=== PATIENT | male | born 1945 | race Caucasian/White ===

== ENCOUNTER → 2017-07-20 | Outpatient (CLI) | payer MEDICARE ==
[~2017-07-20] MED LIST: ADVI200T17 PO; ASPI81TA23 PO; CITA10TA4 PO; CLON0.2T PO; EMPA1TAB PO; ESCI10TA PO; INSU1.2I SQ; LEVO.125 PO; METF1000 PO; METR250T23 PO; OMEP40CA2 PO; RAMI10CA PO; RAPA8CAP PO; ROSU10 PO; TAMS0.4C4 PO
--- NOTE | 2017-07-20 12:33 | RADRPT ---
EXAM DATE/TIME: 07/20/2017 12:10 [facility] COMPARISON: No previous studies available for comparison. INDICATIONS : Evaluate for pneumonia, pneumothorax, or communicable disease. Pre op for pulmonary surgery. MEDICAL HISTORY : None. SURGICAL HISTORY : Cardiac cath w/ stent placement. ENCOUNTER: Initial ACUITY: 1 day PAIN SCORE: 0/10 LOCATION: chest FINDINGS: Borderline cardiomegaly is seen. There are atherosclerotic calcifications involving the visualized ao rta chronic in nature. Focal consolidation is not seen. Right-sided old rib fractures are seen. There are degenerative changes in the thoracic spine with hypertrophic changes. CONCLUSION: No acute cardiopulmonary disease. Wale Arce MD on July 20, 2017 at 12:29 Board Certified Radiologist. This report was verified electronically.
[2017-07-20 13:13] LABS: HEMATOCRIT 40.1 % (39.0-51.0); HEMOGLOBIN 13.7 GM/DL (13.0-17.0); MEAN CELL VOLUME 90.9 FL (80.0-100.0); MEAN CORPUSCULAR HGB CONC 34.1 % (32.0-36.0); MEAN PLATELET VOLUME 9.1 FL (7.0-11.0); PLATELET COUNT 291 TH/MM3 (150-450); RED BLOOD COUNT 4.42 MIL/MM3 (4.50-5.90); RED CELL DISTRIBUTION WIDTH 13.7 % (11.6-17.2); WHITE BLOOD COUNT 8.4 TH/MM3 (4.0-11.0)
[2017-07-20 13:23] LABS: BILIRUBIN, URINE NEG (NEG); BLOOD, URINE NEG (NEG); GLUCOSE,URINE 1000 mg/dL (NEG); KETONE, URINE NEG (NEG); MUCUS URINE FEW /lpf (OCC); NITRITE,URINE NEG (NEG); URINE COLOR LIGHT-YELLOW (YELLW/STRAW); URINE LEUKOCYTE ESTERASE NEG (NEG)
[2017-07-20 13:30] LABS: PROTHROMBIN TIME - PATIENT 10.2 SEC (9.8-11.6)
[2017-07-20 13:41] LABS: BICARBONATE 26.4 MEQ/L (21.0-32.0); CALCIUM 9.4 MG/DL (8.5-10.1); CREATININE 1.23 MG/DL (0.60-1.30)
--- NOTE | 2017-07-21 10:30 | EKG ---
Date Performed: 07/20/2017 Time Performed: 11:24:38 PTAGE: 72 years EKG: Sinus bradycardia with PAC(s) Lateral T wave changes are nonspecific Borderline ECG PREVIOUS TRACING : 08/16/2005 16.28 No change from previous tracing noted. DOCTOR: Rubens Schneider Interpretating Date/Time 07/21/2017 10:28:27
== END ==
LOC: CPRE 11:01
PROVIDERS: ATTEND Thoracic Surgery (Cardiothoracic Vascular Surgery)
DX: Z01.812 Encounter for preprocedural laboratory examination (principal); Z01.811 Encounter for preprocedural respiratory examination; Z01.810 Encounter for preprocedural cardiovascular examination; C34.32 Malignant neoplasm of lower lobe, left bronchus or lung; R94.31 Abnormal electrocardiogram [ECG] [EKG]
CPT/HCPCS: 36415; 71046; 80048; 81001; 85027; 85610; 85730; 93005

== ENCOUNTER 2017-07-24 05:43 | Inpatient (IN) | payer MEDICARE ==
[~2017-07-24] VITALS: Ht 172.7 cm; Wt 99.5 kg
[2017-07-24] VITALS (8 sets, daily range): BP systolic 158–201; BP diastolic 57–76; PULSE 51–84; RESP 14–20; TEMP 97.8–98.1; O2SAT 91–96
[~2017-07-24 05:43] MED LIST changes: -ADVI200T17 PO; -CITA10TA4 PO; -METR250T23 PO
[2017-07-24] MEDS ORDERED: METOPROLOL TARTRATE 25 MG TAB PO PRN (06:30)
[2017-07-24] MEDS ORDERED: SODIUM CHLORID 0.9% 500 ML IV PRN (06:30)
[2017-07-24] MEDS ORDERED: CHLORHEXIDINE GLUCONATE 2 % 1 PACK (2 CLOTHS) TOPICAL PRN (06:30)
[2017-07-24] MEDS ORDERED: POVIDONE IODINE 5% (ANTISEPSIS KIT) 4 APPLICATIONS EACH NARE PRN (06:30)
[2017-07-24] MEDS ORDERED: LACTATED RINGER'S 1000 ML IV PRN (06:30)
[2017-07-24] MEDS ORDERED: ceFAZolin 2 GM PREMIX 50 ML ONE (06:33)
[2017-07-24] MEDS ORDERED: ADVI200T17 PO (06:38)
--- NOTE | 2017-07-24 08:46 | PD.CAR.PN ---
CVT Progress Note Subjective/Hospital Course: 72/ male recent incidental finding of left lover lung mass on CT scan , work up revealed new adenocarcinoma T1 NX MO , recent fatigue and cough PMH: tobacco abuse, subclavian artery occlusion, HTN, HLP, anxiety , hypothyroidism , BPH , DM for thoracotomy today Objective: Vital Signs Date Time Temp Pulse Resp B/P (MAP) Pulse Ox O2 Delivery O2 Flow Rate FiO2 07/24/17 06:45 98.4 42 16 152/68 (96) 98 (1) Hyperlipemia (2) Hypertension (3) Hypothyroidism (4) Diabetes mellitus (5) left thoracotomy (6) Lung cancer Luz Mcqueen Jul 24, 2017 08:46
--- NOTE | 2017-07-24 08:48 | HHI.FF ---
Face to Face Verification Diagnosis: (1) Diabetes mellitus (2) Hyperlipemia (3) Hypothyroidism (4) Lung cancer (5) Hypertension (6) left thoracotomy Home Health Nursing Order: Medication education-adverse effect Wound care and dressing changes Nursing assessment with vital signs Instructions: Thoracic Surgery patients Mandatory frequency Assess and evaluation, 2-3 x a week for one week Initial visit 1. Review post chest surgery instructions chest precautions, Activity, Elastic hose, Incision care, Driving, Incentive spirometry, Smoking, [place] , Work and other) 2. Need Betadine to paint incision 3. Medication reconciliation 4. Importance of follow up care/ check on appointments 5. Make calendar record temperature daily 6. When to call Home nurse, review instructions, phone list 7. Incentive Spirometry, demonstration Visit 1- Begin discharge instruction for patient family and/ or caregiver using teach back method- 1. Signs and symptoms of infection 2. Disease characteristics 3. Medicines and side effects 4. Foods and nutrition/ appetite 5. Infection control/ hand washing/ hygiene Visit 2- Continue teaching 1. Discharge instructions- include additional information on smoking cessation , Visit 3- Continue teaching- 1. Cough and deep breathing, incision monitoring. Incentive spirometry Q1 hr x 10, while awake, also use acapella device hourly whole awake chest wall Precautions: NO pushing or pulling, ( pt must use chest pillow to support chest with all activities and with coughing Daily incision care: ok to shower daily ( 48 hrs after chest tube removed ) , no tub bath. Wash all incisions with liquid dial soap, clean wash cloth to each site, rinse and pat dry. Observe for any signs of infection, such as drainage which is dark yellow, limon, green or foul smelling. Immediately report to the surgeon any drainage from the chest incision, or legs, and for any abnormal drainage from the chest tube sites. Notify surgeon if any temp > 101.5 degrees F. When specialty dressing removed/ or if you do not have one, continue to shower daily as above, then rinse and pat incision dry and paint with betadine daily x 5 days. Allow steri strips to fall off if you have any. Avoid lotions, creams, salves, oils, etc. for the first month For Dr. Brooks patients , please obtain PA & Lat CXR in 2 weeks, results to Dr. Brooks ( prescription will be given) ( ) (Tele: [phone]) , F/U appointment: as per DC instructions: PCP in 2 weeks, CV surgeon 2 weeks, For any questions regarding incisions/ dressing / meds / post op care or above Symptoms, Monday 8am-5pm Heart & Vascular Surgery Office ( Dr. Elmore & Dr. Brooks), After Hours / Nights (5pm -8am) Weekends and Holidays Please call [facility] Card[facility] ([facility]) Charge Nurse I have seen patient Giuliano Pereira on 07/24/17. My clinical findings support the need for the requested home health care services because: Deconditioned w/ increased weakness I certify that my clinical findings support that this patient is homebound because: Post-op weakness Luz Mcqueen Jul 24, 2017 08:48
[2017-07-24] MEDS ORDERED: BUPIVACAINE LIPOSO PF 1.3% INJ 20 ML, DEXAMETHASONE INJ 4 MG, MORPHINE INJ 8 MG in SODI... IRRIGATION SCH (09:00)
[2017-07-24] MEDS ORDERED: SUGAMMADEX SODIUM 200 MG/2 ML VIAL IV PUSH ONE (10:41)
[2017-07-24] MEDS ORDERED: NALOXONE HCL 0.4 MG/ML AMP IV PUSH PRN (11:00)
[2017-07-24] MEDS ORDERED: Post-op Orders (for Pharmacy) OTHER ONE (11:00)
[2017-07-24] MEDS ORDERED: POTASSIUM CHLOR 20 MEQ PREMIX 100 ML IV PRN (11:00)
[2017-07-24] MEDS ORDERED: RESP: ALBUTEROL 2.5 MG/3 ML NEB (PRN) NEB (11:00)
[2017-07-24] MEDS ORDERED: SODIUM CHLORIDE 0.9% FLUSH 10 ML FLUSH IV FLUSH PRN (11:00)
[2017-07-24] MEDS ORDERED: MAGNESIUM HYDROXIDE SUSP 30 ML CUP PO PRN (11:00)
[2017-07-24] MEDS ORDERED: ACETAMINOPHEN 325 MG TAB PO PRN (11:00)
[2017-07-24] MEDS ORDERED: [UNRECOGNIZED DRUG - OTHER] PO PRN (11:00)
--- NOTE | 2017-07-24 11:07 | PD.OP ---
cc: Thompson Tee MD; Mihaela Brooks MD; Masood Sheriff MD Operative Report Date of Surgery: Jul 24, 2017 Preoperative Diagnosis: (1) Lung cancer Postoperative Diagnosis: same Procedure: Left thoracoscopic assisted left lower lobectomy Intercostal rib block - T4-T7 Anesthesia: Dr. Lomas Surgeon: Mihaela Brooks Etiquette Coach(s): GOLDY Tellez Operation and Findings: After adequate general anesthesia the patient was placed in the right lateral decubitus position and the left chest was prepped and draped in usual manner. A 10cm posterolateral incision was performed and electrocautery was used to obtain hemostasis and carry the dissection down through the latissimus dorsi. The serratus anterior was retracted anteriorly and the 5th intercostal space was entered under direct vision and selective single lung ventilation. A retractor was placed after shingling the 5th rib posteriorly. Exploration of the left hemithorax was significant for a mass in the superior segment of the left lower lobe. An anterior port was placed at ~T6 and the thoracoscope was introduced to aid in exposure. The superior segment was resected using a stapler and the specimen was submitted for frozen section. The diagnosis was confirmed as adenocarcinoma and there were atypical cells at the margin. The major fissure was developed using electrocautery and sharp dissection. The pleural reflection was divided posteriorly from the major fissure down and the inferior pulmonary ligament was divided up to the left inferior pulmonary vein. The fissure was completed and the segmental lower lobe branches were ligated and divided using a vascular stapler. The left inferior pulmonary vein was isolated and divided using a endo-LAURENT vascular stapler. The left lower lobe bronchus was isolated and divided using an endo LAURENT stapler. The specimen was submitted to pathology for permanent section. Additionally, a level 9 and a level 6 lymph node were resected and submitted for permanent section. A 32 Chinese chest tube was then placed through the anterior port incision anteriorly and each secured with 0 silk suture. Intercostal rib blocks were then placed from T4-T7 posteriorly. The lung was ventilated and no significant air leaks were found. The wound was closed in layers approximately in the ribs initially with a 2. Vicryl [id number] suture. The latissimus dorsi was reapproximated using a running 0 Vicryl suture. The subcutaneous tissues approximated running 2-0 Vicryl suture and the skin was approximated using running 4-0 Monocryl subcuticular stitch. All sponges history counts were correct at the close the procedure and the patient was transferred to the PACU for recovery purposes. Findings: Left lower lobe tumor Specimen: left lower lobe, level 9 and 6 lymph nodes Drain: 32F chest tube Complications: none Mihaela Brooks MD Jul 24, 2017 11:07
[2017-07-24] MEDS ORDERED: DO NOT ADM ANY ANTICOAGULANT DRUGS PRN (11:31)
[2017-07-24] MEDS ORDERED: *morphine SULFATE 4 MG/ML PERIprocedure ONLY ONE (11:55)
[2017-07-24] MEDS ORDERED: INSULIN HUMAN REGULAR 1,000 UNITS/10 ML VIAL ONE (12:11)
--- NOTE | 2017-07-24 12:12 | RADRPT ---
EXAM DATE/TIME: 07/24/2017 11:44 [facility] COMPARISON: CHEST PA & LAT, July 20, 2017, 12:10. INDICATIONS : Post-op Thoracotomy. MEDICAL HISTORY : None. SURGICAL HISTORY : Cardiac cath w/ stent placement ENCOUNTER: Initial ACUITY: 1 day PAIN SCORE: Non-responsive. LOCATION: Bilateral chest FINDINGS: There is a left-sided chest tube in place. There is a minimal left pneumothorax in the left apex. Lef t subcutaneous emphysema is seen. There is fracturing of the posterior left fifth and sixth ribs. Thi s could be postoperative. The cardiac silhouette is enlarged. The lungs demonstrate diffuse prominenc e of the interstitium. A focal alveolar consolidation is not seen. The costophrenic angles are clear. CONCLUSION: 1. Minimal left pneumothorax with a left chest tube in place. 2. Diffuse prominence of the interstitium which may represent mild pulmonary edema. Paulie Freitas MD on July 24, 2017 at 12:07 Board Certified Radiologist. This report was verified electronically.
[2017-07-24] MEDS: MORPHINE SULFATE 30 MG/30 ML PCA IV SCH (12:15)
[2017-07-24] MEDS ORDERED: hydrALAZINE HCL 20 MG/ML VIAL ONE (12:29)
[2017-07-24] MEDS ORDERED: INSULIN HUMAN REGULAR 1,000 UNITS/10 ML VIAL IV PUSH ONE (13:00)
[2017-07-24] MEDS: hydrALAZINE HCL 20 MG/ML VIAL IV PUSH PRN ×6 (13:33→20:10)
[2017-07-24] MEDS: TAMSULOSIN HCL 0.4 MG CAP PO SCH ×2 (13:57→20:11)
[2017-07-24] MEDS: PCA - TOTAL MG MORPHINE DELIVERED PER SHIFT SCH ×2 (14:00→22:00)
[2017-07-24] MEDS ORDERED: METOPROLOL TARTRATE 5 MG/5 ML VIAL IV PUSH ONE ×2 (15:00→15:45)
[2017-07-24] MEDS ORDERED: METOPROLOL TARTRATE 5 MG/5 ML VIAL ONE (15:21)
[2017-07-24] MEDS ORDERED: ONDANSETRON HCL 4 MG/2 ML VIAL IV PUSH ONE (16:45)
[2017-07-24] MEDS: ACETAMINOPHEN 1000 MG/100 ML 100 ML IV SCH ×2 (16:58→23:13)
[2017-07-24] MEDS: INSULIN ASPART SUPPLEMENTAL SCALE SQ SCH ×2 (19:19→23:37)
[2017-07-24] MEDS ORDERED: DEXTROSE 50% IN WATER 50 ML VIAL(D50) IV PUSH PRN (19:30)
[2017-07-24] MEDS ORDERED: GLUCAGON 1 MG/ML VIAL OTHER PRN (19:30)
[2017-07-24] MEDS: metFORMIN HCL 500 MG TAB PO SCH (20:10)
[2017-07-24] MEDS: ATORVASTATIN 20 MG TAB PO SCH (20:10)
[2017-07-24] MEDS: PANTOPRAZOLE SOD 40 MG DELAYED RELEASE TAB PO SCH (20:11)
[2017-07-24] MEDS: cloNIDine HCL 0.2 MG TAB PO SCH (20:11)
[2017-07-24] MEDS: ONDANSETRON HCL 4 MG/2 ML VIAL IV PUSH PRN (20:30)
[2017-07-24] MEDS: EMPAGLIFLOZIN 10 MG PO SCH (21:00)
[2017-07-24] MEDS ORDERED: DOCUSATE CALCIUM 240 MG CAP PO SCH (21:00)
[2017-07-24] MEDS: RAMIPRIL 5 MG CAP PO SCH (21:15)
[2017-07-24] MEDS: LEVOTHYROXINE SODIUM 125 MCG TAB PO SCH (21:15)
[2017-07-24] MEDS: SODIUM CHLORIDE 0.9% FLUSH 10 ML FLUSH IV FLUSH SCH (21:15)
[2017-07-24] MEDS ORDERED: CLEVIDIPINE INJ 50 ML ONE (23:18)
[2017-07-25] VITALS (19 sets, daily range): BP systolic 133–220; BP diastolic 39–88; PULSE 57–107; RESP 16–20; TEMP 98.1–98.6; O2SAT 91–96
[2017-07-25 04:45] LABS: BASOPHIL % 0.2 % (0.0-2.0); HEMATOCRIT 36.3 % (39.0-51.0); HEMOGLOBIN 12.4 GM/DL (13.0-17.0); LYMPHOCYTE # 0.7 TH/MM3 (1.0-4.8); MEAN CELL VOLUME 90.1 FL (80.0-100.0); MEAN CORPUSCULAR HEMOGLOBIN 30.7 PG (27.0-34.0); MEAN CORPUSCULAR HGB CONC 34.1 % (32.0-36.0); MEAN PLATELET VOLUME 8.8 FL (7.0-11.0); MONO % 8.5 % (0.0-8.0); MONOCYTE # 1.3 TH/MM3 (0-0.9); NEUT % 86.3 % (16.0-70.0); PLATELET COUNT 284 TH/MM3 (150-450); RED BLOOD COUNT 4.03 MIL/MM3 (4.50-5.90); RED CELL DISTRIBUTION WIDTH 14.2 % (11.6-17.2); WHITE BLOOD COUNT 15.1 TH/MM3 (4.0-11.0)
[2017-07-25 05:08] LABS: BICARBONATE 26.2 MEQ/L (21.0-32.0); CALCIUM 8.7 MG/DL (8.5-10.1); CREATININE 1.4 MG/DL (0.60-1.30)
--- NOTE | 2017-07-25 05:12 | RADRPT ---
EXAM DATE/TIME: 07/25/2017 04:17 [facility] COMPARISON: CHEST SINGLE AP, July 24, 2017, 11:44. INDICATIONS : Short of breath. MEDICAL HISTORY : None. SURGICAL HISTORY : Cardiac cath w/ stent placement ENCOUNTER: Subsequent ACUITY: 2 days PAIN SCORE: 0/10 LOCATION: Bilateral chest FINDINGS: A single view of the chest demonstrates a left chest tube without pneumothorax. Subcutaneous air in t he left chest wall. Bilateral mostly basilar dependent opacity in the lungs, probably atelectasis. He art size enlarged. CONCLUSION: 1. Left chest tube without definite pneumothorax on the current exam. Celso Shaw MD on July 25, 2017 at 5:09 Board Certified Radiologist. This report was verified electronically.
[2017-07-25] MEDS: PCA - TOTAL MG MORPHINE DELIVERED PER SHIFT SCH ×3 (05:56→22:00)
[2017-07-25] MEDS: ACETAMINOPHEN 1000 MG/100 ML 100 ML IV SCH (05:56)
[2017-07-25] MEDS: INSULIN ASPART SUPPLEMENTAL SCALE SQ SCH ×4 (06:02→21:40)
--- NOTE | 2017-07-25 08:47 | PD.CAR.PN ---
CVT Progress Note Subjective/Hospital Course: 72/ male recent incidental finding of left lover lung mass on CT scan , work up revealed new adenocarcinoma T1 NX MO , recent fatigue and cough PMH: tobacco abuse, subclavian artery occlusion, HTN, HLP, anxiety , hypothyroidism , BPH , DM 07/24 : Left thoracoscopic assisted left lower lobectomy Intercostal rib block - T4-T7 extubated after surgery , on nasal cannula 07/25 up in chair, using IS needs aggressive pulm toileting intermittent small air leak, CXR no PTX pain controlled insulin adjusted for blood sugars transfer to stepdown Objective: GENERAL: A& O x 3 SKIN: Warm and dry. dressing left postero lateral chest wall HEAD: Normocephalic. EYES: No scleral icterus. No injection or drainage. NECK: Supple, trachea midline. No JVD or lymphadenopathy. CARDIOVASCULAR: Regular rate and rhythm without murmurs, gallops, or rubs. RESPIRATORY: Breath sounds equal bilaterally. No accessory muscle use. chest with intermittent small air leak with cough, to 20cm suction / drained 150cc/ 12hrs GASTROINTESTINAL: Abdomen soft, non-tender, nondistended. MUSCULOSKELETAL: No cyanosis, or edema. BACK: Nontender without obvious deformity. No CVA tenderness. Vital Signs Date Time Temp Pulse Resp B/P (MAP) Pulse Ox O2 Delivery O2 Flow Rate FiO2 07/25/17 07:32 94 Nasal Cannula 1.00 07/25/17 07:00 98.1 73 16 139/63 (88) 94 133/39 (70) 07/25/17 07:00 57 07/25/17 07:00 94 Nasal Cannula 4.00 07/25/17 05:56 16 07/25/17 03:27 72 07/25/17 03:26 97 Nasal Cannula 4.00 07/25/17 03:26 98.6 73 16 143/62 (89) 96 156/42 (80) 07/25/17 02:00 94 129/56 07/25/17 00:30 70 152/62 07/24/17 23:38 76 171/72 07/24/17 23:00 75 14 171/72 (105) 96 171/73 (105) 07/24/17 23:00 96 Nasal Cannula 4.00 07/24/17 23:00 80 07/24/17 22:24 95 Nasal Cannula 3.00 07/24/17 22:00 14 07/24/17 19:20 97.8 62 14 159/69 (99) 91 07/24/17 19:20 91 Nasal Cannula 4.00 07/24/17 19:00 84 07/24/17 15:35 95 Nasal Cannula 4.00 07/24/17 15:00 81 07/24/17 15:00 96 Nasal Cannula 4.00 07/24/17 15:00 98.1 79 20 158/76 (103) 96 197/63 (107) 07/24/17 14:00 20 07/24/17 12:45 55 07/24/17 12:20 97.8 51 18 175/72 (106) 93 201/57 (105) 07/24/17 12:20 93 Nasal Cannula 4.00 07/24/17 12:15 16 07/24/17 12:15 97.7 55 20 164/70 (101) 97 Nasal Cannula 3 07/24/17 12:00 49 20 164/71 (102) 96 07/24/17 11:45 48 20 176/77 (110) 96 07/24/17 11:30 67 17 202/87 (125) 96 07/24/17 11:26 97.7 72 17 213/92 (132) 98 Simple Mask 6 Labs: Laboratory Tests Test 07/25/17 04:30 White Blood Count 15.1 TH/MM3 (4.0-11.0) Red Blood Count 4.03 MIL/MM3 (4.50-5.90) Hemoglobin 12.4 GM/DL (13.0-17.0) Hematocrit 36.3 % (39.0-51.0) Mean Corpuscular Volume 90.1 FL (80.0-100.0) Mean Corpuscular Hemoglobin 30.7 PG (27.0-34.0) Mean Corpuscular Hemoglobin Concent 34.1 % (32.0-36.0) Red Cell Distribution Width 14.2 % (11.6-17.2) Platelet Count 284 TH/MM3 (150-450) Mean Platelet Volume 8.8 FL (7.0-11.0) Neutrophils (%) (Auto) 86.3 % (16.0-70.0) Lymphocytes (%) (Auto) 5.0 % (9.0-44.0) Monocytes (%) (Auto) 8.5 % (0.0-8.0) Eosinophils (%) (Auto) 0.0 % (0.0-4.0) Basophils (%) (Auto) 0.2 % (0.0-2.0) Neutrophils # (Auto) 13.0 TH/MM3 (1.8-7.7) Lymphocytes # (Auto) 0.7 TH/MM3 (1.0-4.8) Monocytes # (Auto) 1.3 TH/MM3 (0-0.9) Eosinophils # (Auto) 0.0 TH/MM3 (0-0.4) Basophils # (Auto) 0.0 TH/MM3 (0-0.2) CBC Comment DIFF FINAL Differential Comment Blood Urea Nitrogen 27 MG/DL (7-18) Creatinine 1.40 MG/DL (0.60-1.30) Random Glucose 186 MG/DL (74-106) Calcium Level 8.7 MG/DL (8.5-10.1) Sodium Level 136 MEQ/L (136-145) Potassium Level 3.9 MEQ/L (3.5-5.1) Chloride Level 101 MEQ/L (98-107) Carbon Dioxide Level 26.2 MEQ/L (21.0-32.0) Anion Gap 9 MEQ/L (5-15) Estimat Glomerular Filtration Rate 50 ML/MIN (>89) Result Diagram: 07/25/1742907/25/17429 Telemetry: NSR (1) Hyperlipemia Plan: on statin (2) Hypertension Plan: add norvasc (3) Hypothyroidism Plan: synthroid (4) Diabetes mellitus Plan: on insulin sliding scale, adjust levemir on diabetic diet / metformin (5) left thoracotomy Plan: IS, pain control pulm toileting wean 02 path pending (6) Lung cancer Luz Mcqueen Jul 25, 2017 08:47
[2017-07-25] MEDS ORDERED: SOD PHOSPHATE/SOD BIPHOSPHATE (ADULT) ENEMA 133ML RECTAL PRN (09:00)
[2017-07-25] MEDS: EMPAGLIFLOZIN 10 MG PO SCH ×2 (09:00→21:40)
[2017-07-25] MEDS ORDERED: DEXTROSE 50% IN WATER 50 ML VIAL(D50) IV PUSH PRN (09:00)
[2017-07-25] MEDS ORDERED: INSULIN DETEMIR 100 UNITS/ML VIAL SQ SCH (09:00)
[2017-07-25] MEDS: SODIUM CHLORIDE 0.9% FLUSH 10 ML FLUSH IV FLUSH SCH ×2 (09:00→21:40)
[2017-07-25] MEDS ORDERED: BISACODYL 10 MG SUPP RECTAL PRN (09:00)
[2017-07-25] MEDS ORDERED: GLUCAGON 1 MG/ML VIAL OTHER PRN (09:00)
[2017-07-25] MEDS: ESCITALOPRAM OXALATE 10 MG TAB PO SCH (09:09)
[2017-07-25] MEDS: TAMSULOSIN HCL 0.4 MG CAP PO SCH ×2 (09:10→21:36)
[2017-07-25] MEDS: ASPIRIN EC 81 MG TABEC PO SCH (09:10)
[2017-07-25] MEDS: INSULIN DETEMIR 100 UNITS/ML VIAL SQ SCH ×2 (09:24→21:39)
[2017-07-25] MEDS: MAGNESIUM HYDROXIDE SUSP 30 ML CUP PO SCH (09:25)
[2017-07-25] MEDS: amLODIPine BESYLATE 5 MG TAB PO SCH (09:25)
[2017-07-25] MEDS: MULTIVITAMINS/MINERALS THERAPEUTIC TAB PO SCH (09:25)
[2017-07-25] MEDS: DOCUSATE SODIUM 100 MG CAP PO SCH ×2 (09:25→21:37)
[2017-07-25] MEDS: MORPHINE SULFATE 30 MG/30 ML PCA IV SCH (11:06)
[2017-07-25] MEDS ORDERED: hydrALAZINE HCL 20 MG/ML VIAL ONE (11:10)
[2017-07-25] MEDS: ONDANSETRON HCL 4 MG/2 ML VIAL IV PUSH PRN (11:47)
[2017-07-25] MEDS ORDERED: METOCLOPRAMIDE HCL 10 MG/2 ML VIAL IV PUSH PRN (13:45)
[2017-07-25] MEDS: ACETAMINOPHEN/HYDROcodone 325 MG/7.5 MG TAB PO PRN ×2 (14:01→20:07)
[2017-07-25] MEDS: hydrALAZINE HCL 20 MG/ML VIAL IV PUSH PRN ×3 (14:03→23:16)
[2017-07-25] MEDS: RESP: ALBUTEROL 2.5 MG/IPRATROPIUM 0.5 MG NEB (SCH) NEB ×2 (15:50→19:57)
[2017-07-25] MEDS: cloNIDine HCL 0.2 MG TAB PO SCH (21:36)
[2017-07-25] MEDS: ATORVASTATIN 20 MG TAB PO SCH (21:37)
[2017-07-25] MEDS: metFORMIN HCL 500 MG TAB PO SCH (21:37)
[2017-07-25] MEDS: PANTOPRAZOLE SOD 40 MG DELAYED RELEASE TAB PO SCH (21:38)
[2017-07-25] MEDS: RAMIPRIL 5 MG CAP PO SCH (21:38)
[2017-07-25] MEDS: LEVOTHYROXINE SODIUM 125 MCG TAB PO SCH (21:38)
[2017-07-26] VITALS (30 sets, daily range): BP systolic 185–213; BP diastolic 84–95; PULSE 62–99; RESP 16–21; TEMP 98.3–98.8; O2SAT 92–95
[2017-07-26] MEDS: hydrALAZINE HCL 20 MG/ML VIAL IV PUSH PRN ×4 (03:30→20:52)
[2017-07-26] MEDS: ACETAMINOPHEN/HYDROcodone 325 MG/7.5 MG TAB PO PRN ×5 (03:43→19:57)
[2017-07-26 04:14] LABS: AUTOMATED NEUTROPHIL # 11.9 TH/MM3 (1.8-7.7); BASOPHIL % 0.1 % (0.0-2.0); EOSINOPHIL % 0.1 % (0.0-4.0); HEMATOCRIT 35.5 % (39.0-51.0); HEMOGLOBIN 12.1 GM/DL (13.0-17.0); LYMPH % 5.6 % (9.0-44.0); LYMPHOCYTE # 0.8 TH/MM3 (1.0-4.8); MEAN CELL VOLUME 90.5 FL (80.0-100.0); MEAN CORPUSCULAR HEMOGLOBIN 30.8 PG (27.0-34.0); MEAN PLATELET VOLUME 9.2 FL (7.0-11.0); MONO % 7.7 % (0.0-8.0); MONOCYTE # 1.1 TH/MM3 (0-0.9); NEUT % 86.5 % (16.0-70.0); PLATELET COUNT 263 TH/MM3 (150-450); RED BLOOD COUNT 3.92 MIL/MM3 (4.50-5.90); RED CELL DISTRIBUTION WIDTH 14.4 % (11.6-17.2); WHITE BLOOD COUNT 13.7 TH/MM3 (4.0-11.0)
[2017-07-26 04:34] LABS: BICARBONATE 26.6 MEQ/L (21.0-32.0); CALCIUM 8.3 MG/DL (8.5-10.1); CREATININE 1.19 MG/DL (0.60-1.30); MAGNESIUM 2.2 MG/DL (1.5-2.5)
[2017-07-26] MEDS: PCA - TOTAL MG MORPHINE DELIVERED PER SHIFT SCH (06:00)
[2017-07-26] MEDS: RESP: ALBUTEROL 2.5 MG/IPRATROPIUM 0.5 MG NEB (SCH) NEB ×3 (07:37→19:46)
[2017-07-26] MEDS: INSULIN ASPART SUPPLEMENTAL SCALE SQ SCH ×4 (08:00→20:51)
[2017-07-26] MEDS: INSULIN DETEMIR 100 UNITS/ML VIAL SQ SCH (09:00)
[2017-07-26] MEDS: EMPAGLIFLOZIN 10 MG PO SCH ×2 (09:00→19:58)
[2017-07-26] MEDS: POLYETHYLENE GLYCOL 17 GM PKG PO SCH (09:08)
[2017-07-26] MEDS: SODIUM CHLORIDE 0.9% FLUSH 10 ML FLUSH IV FLUSH SCH ×2 (09:09→20:47)
[2017-07-26] MEDS: DOCUSATE SODIUM 100 MG CAP PO SCH ×2 (09:09→20:50)
[2017-07-26] MEDS: amLODIPine BESYLATE 5 MG TAB PO SCH (09:09)
[2017-07-26] MEDS: MAGNESIUM HYDROXIDE SUSP 30 ML CUP PO SCH (09:09)
[2017-07-26] MEDS: ESCITALOPRAM OXALATE 10 MG TAB PO SCH (09:09)
[2017-07-26] MEDS: TAMSULOSIN HCL 0.4 MG CAP PO SCH ×2 (09:09→20:50)
[2017-07-26] MEDS: MULTIVITAMINS/MINERALS THERAPEUTIC TAB PO SCH (09:09)
[2017-07-26] MEDS: ASPIRIN EC 81 MG TABEC PO SCH (09:09)
[2017-07-26] MEDS ORDERED: amLODIPine BESYLATE 5 MG TAB PO ONE (11:15)
--- NOTE | 2017-07-26 13:16 | PD.CAR.PN ---
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 incision intact and well approximated left postero lateral chest wall HEAD: Normocephalic. EYES: No scleral icterus. No injection or drainage. NECK: Supple, trachea midline. No JVD or lymphadenopathy. CARDIOVASCULAR: Regular rate and rhythm without murmurs, gallops, or rubs. RESPIRATORY: Breath sounds equal bilaterally. No accessory muscle use. diminished left lower lung / chest tube to water seal, no air leak GASTROINTESTINAL: Abdomen soft, non-tender, nondistended. MUSCULOSKELETAL: No cyanosis, or edema. BACK: Nontender without obvious deformity. No CVA tenderness. Vital Signs Date Time Temp Pulse Resp B/P (MAP) Pulse Ox O2 Delivery O2 Flow Rate FiO2 07/26/17 11:23 93 Nasal Cannula 2.00 07/26/17 11:23 98.3 81 16 204/87 (126) 94 07/26/17 10:00 77 07/26/17 09:00 62 07/26/17 08:00 79 07/26/17 07:38 94 Nasal Cannula 2.00 07/26/17 07:23 95 Nasal Cannula 2.00 07/26/17 07:23 98.8 96 18 208/87 (127) 95 07/26/17 07:00 75 07/26/17 06:07 62 07/26/17 06:00 20 07/26/17 05:10 82 07/26/17 04:16 76 07/26/17 03:52 Nasal Cannula 2.00 07/26/17 03:52 98.3 78 21 185/88 (120) 92 07/26/17 03:52 80 07/26/17 02:02 80 07/26/17 01:06 79 07/26/17 00:35 79 07/25/17 23:40 98.6 107 20 203/88 (126) 93 07/25/17 23:40 Nasal Cannula 2.00 07/25/17 23:00 101 07/25/17 22:00 88 07/25/17 22:00 20 07/25/17 21:00 90 07/25/17 20:20 80 07/25/17 19:57 94 Nasal Cannula 2.00 07/25/17 19:20 Nasal Cannula 2.00 07/25/17 19:20 98.4 86 19 220/80 (126) 93 07/25/17 19:20 84 07/25/17 18:00 74 07/25/17 17:00 68 07/25/17 16:00 94 21 07/25/17 16:00 80 07/25/17 15:00 70 17 160/70 (100) 91 Arterial Line Manual Cuff/Palpation 07/25/17 15:00 91 Nasal Cannula 2.00 07/25/17 15:00 69 07/25/17 14:00 62 07/25/17 14:00 18 Labs: Laboratory Tests Test 07/26/17 03:30 White Blood Count 13.7 TH/MM3 (4.0-11.0) Red Blood Count 3.92 MIL/MM3 (4.50-5.90) Hemoglobin 12.1 GM/DL (13.0-17.0) Hematocrit 35.5 % (39.0-51.0) Mean Corpuscular Volume 90.5 FL (80.0-100.0) Mean Corpuscular Hemoglobin 30.8 PG (27.0-34.0) Mean Corpuscular Hemoglobin Concent 34.0 % (32.0-36.0) Red Cell Distribution Width 14.4 % (11.6-17.2) Platelet Count 263 TH/MM3 (150-450) Mean Platelet Volume 9.2 FL (7.0-11.0) Neutrophils (%) (Auto) 86.5 % (16.0-70.0) Lymphocytes (%) (Auto) 5.6 % (9.0-44.0) Monocytes (%) (Auto) 7.7 % (0.0-8.0) Eosinophils (%) (Auto) 0.1 % (0.0-4.0) Basophils (%) (Auto) 0.1 % (0.0-2.0) Neutrophils # (Auto) 11.9 TH/MM3 (1.8-7.7) Lymphocytes # (Auto) 0.8 TH/MM3 (1.0-4.8) Monocytes # (Auto) 1.1 TH/MM3 (0-0.9) Eosinophils # (Auto) 0.0 TH/MM3 (0-0.4) Basophils # (Auto) 0.0 TH/MM3 (0-0.2) CBC Comment DIFF FINAL Differential Comment Blood Urea Nitrogen 30 MG/DL (7-18) Creatinine 1.19 MG/DL (0.60-1.30) Random Glucose 137 MG/DL (74-106) Calcium Level 8.3 MG/DL (8.5-10.1) Magnesium Level 2.2 MG/DL (1.5-2.5) Sodium Level 133 MEQ/L (136-145) Potassium Level 3.9 MEQ/L (3.5-5.1) Chloride Level 98 MEQ/L (98-107) Carbon Dioxide Level 26.6 MEQ/L (21.0-32.0) Anion Gap 8 MEQ/L (5-15) Estimat Glomerular Filtration Rate 60 ML/MIN (>89) Result Diagram: 07/26/17 0330 07/26/17329 Telemetry: NSR (1) Hyperlipemia Plan: on statin (2) Hypertension Plan: norvasc increased all home meds resumed (3) Hypothyroidism Plan: synthroid (4) Diabetes mellitus Plan: on insulin sliding scale, adjust levemir on diabetic diet / metformin (5) left thoracotomy Plan: IS, pain control pulm toileting on room air path pending (6) Lung cancer Luz Mcqueen Jul 26, 2017 13:16
[2017-07-26] MEDS: hydrALAZINE HCL 25 MG TAB PO SCH ×2 (13:41→21:31)
[2017-07-26] MEDS: metFORMIN HCL 500 MG TAB PO SCH (20:49)
[2017-07-26] MEDS: cloNIDine HCL 0.2 MG TAB PO SCH (20:49)
[2017-07-26] MEDS: RAMIPRIL 5 MG CAP PO SCH (20:49)
[2017-07-26] MEDS: LEVOTHYROXINE SODIUM 125 MCG TAB PO SCH (20:50)
[2017-07-26] MEDS: ATORVASTATIN 20 MG TAB PO SCH (20:50)
[2017-07-26] MEDS: PANTOPRAZOLE SOD 40 MG DELAYED RELEASE TAB PO SCH (20:52)
[2017-07-26] MEDS ORDERED: INSULIN DETEMIR 100 UNITS/ML VIAL SQ SCH (21:00)
[2017-07-27] VITALS (31 sets, daily range): BP systolic 142–206; BP diastolic 64–104; PULSE 53–95; RESP 16–19; TEMP 97.5–98.4; O2SAT 93–97
[2017-07-27] MEDS: hydrALAZINE HCL 20 MG/ML VIAL IV PUSH PRN (01:14)
[2017-07-27] MEDS: hydrALAZINE HCL 25 MG TAB PO SCH ×2 (06:14→13:14)
[2017-07-27] MEDS: ACETAMINOPHEN/HYDROcodone 325 MG/7.5 MG TAB PO PRN ×4 (06:36→18:38)
[2017-07-27] MEDS: RESP: ALBUTEROL 2.5 MG/IPRATROPIUM 0.5 MG NEB (SCH) NEB ×3 (07:29→20:14)
[2017-07-27] MEDS: POLYETHYLENE GLYCOL 17 GM PKG PO SCH (08:33)
[2017-07-27] MEDS: MULTIVITAMINS/MINERALS THERAPEUTIC TAB PO SCH (08:33)
[2017-07-27] MEDS: TAMSULOSIN HCL 0.4 MG CAP PO SCH ×2 (08:33→20:56)
[2017-07-27] MEDS: DOCUSATE SODIUM 100 MG CAP PO SCH ×2 (08:33→20:55)
[2017-07-27] MEDS: MAGNESIUM HYDROXIDE SUSP 30 ML CUP PO SCH (08:33)
[2017-07-27] MEDS: ESCITALOPRAM OXALATE 10 MG TAB PO SCH (08:33)
[2017-07-27] MEDS: ASPIRIN EC 81 MG TABEC PO SCH (08:34)
[2017-07-27] MEDS: EMPAGLIFLOZIN 10 MG PO SCH ×2 (08:34→20:40)
[2017-07-27] MEDS: INSULIN ASPART SUPPLEMENTAL SCALE SQ SCH ×4 (08:34→20:56)
[2017-07-27] MEDS: SODIUM CHLORIDE 0.9% FLUSH 10 ML FLUSH IV FLUSH SCH ×2 (08:35→20:56)
--- NOTE | 2017-07-27 08:52 | RADRPT ---
EXAM DATE/TIME: 07/27/2017 08:20 [facility] COMPARISON: CHEST SINGLE AP, July 25, 2017, 4:17. INDICATIONS : Chest tube placement after left lower lobe was removed. Evaluate for pneumothorax. MEDICAL HISTORY : Hypertension. Diabetes mellitus type II. Carcinoma, lung. SURGICAL HISTORY : Left lower lobe was removed. ENCOUNTER: Subsequent ACUITY: 4 - 6 days PAIN SCORE: 0/10 LOCATION: Bilateral chest FINDINGS: There is a stable left apical chest tubes in place. Slightly increased subcutaneous emphysema in the left chest wall. Otherwise, no significant pneumothorax. Mild diffuse interstitial prominence with sl ight increased left lower lung zone airspace disease. Cardiac silhouette is enlarged. Remainder of th e exam is unchanged. CONCLUSION: 1. Stable left apical chest tube without definite pneumothorax although there is slight increase in l eft chest wall subcutaneous emphysema. 2. Cardiomegaly with mild positive fluid balance. 3. Increased left lower lung zone airspace disease, likely atelectasis. Jose Nye MD on July 27, 2017 at 8:47 Board Certified Radiologist. This report was verified electronically.
[2017-07-27] MEDS ORDERED: FUROSEMIDE 40 MG/4 ML VIAL IV PUSH ONE (09:00)
[2017-07-27] MEDS ORDERED: POTASSIUM CHLORIDE 10 MEQ CONTROLLED RELEASE TAB PO ONE (09:00)
[2017-07-27] MEDS: cloNIDine HCL 0.2 MG TAB PO SCH ×2 (09:00→20:56)
[2017-07-27] MEDS: INSULIN DETEMIR 100 UNITS/ML VIAL SQ SCH ×2 (09:51→20:56)
--- NOTE | 2017-07-27 14:14 | PD.CAR.PN ---
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 of hypertension and pain last night , pain meds adjusted, BP meds adjusted , spoke with pt and spouse about asking for his meds when needed now on po norco, prn fentanly CT drained 220cc/ 12 hrs , chest tube now to water seal / eval for removal in am path pending levemir adjusted for elevated BGM 07/27 BGM still elevated, levemir adjusted preprandial insulin added chest tube drained 220cc/ 12 hrs, additional 100cc since this am remains on / CXR noted, volume overload with atelectasis aggressive pulm toileting OOB ambulate, BP elevated labetelol added , in addition to RAO and clonidine renal US pending / to r/u renal artery stenosis lasix IV x 1, f/u labs in am Objective: GENERAL: A&O x 3 SKIN: Warm and dry. incision intact and well approximate left posterior chest wall HEAD: Normocephalic. EYES: No scleral icterus. No injection or drainage. NECK: Supple, trachea midline. No JVD or lymphadenopathy. CARDIOVASCULAR: Regular rate and rhythm without murmurs, gallops, or rubs. RESPIRATORY: diminished in bases L>R Breath sounds equal bilaterally. No accessory muscle use. chest tube to water seal, no air leak GASTROINTESTINAL: Abdomen soft, non-tender, nondistended. MUSCULOSKELETAL: No cyanosis, or edema. BACK: Nontender without obvious deformity. No CVA tenderness. Vital Signs Date Time Temp Pulse Resp B/P (MAP) Pulse Ox O2 Delivery O2 Flow Rate FiO2 07/27/17 14:00 60 07/27/17 13:00 61 07/27/17 12:00 74 07/27/17 11:14 97.8 76 18 193/85 (121) 93 07/27/17 11:13 94 Nasal Cannula 2.00 07/27/17 11:00 69 07/27/17 10:00 77 07/27/17 09:00 78 07/27/17 08:00 95 07/27/17 07:52 96 Nasal Cannula 2.00 07/27/17 07:51 97.5 81 18 206/104 (138) 96 07/27/17 07:30 97 Nasal Cannula 2.00 07/27/17 07:00 78 07/27/17 06:31 71 07/27/17 05:13 75 07/27/17 04:11 70 07/27/17 03:20 93 2.00 07/27/17 03:20 68 07/27/17 03:20 98.4 80 19 158/68 (98) 93 07/27/17 02:10 71 07/27/17 02:04 142/64 (90) 07/27/17 01:11 195/82 (119) 07/27/17 01:08 85 07/27/17 00:58 89 07/26/17 23:20 84 07/26/17 23:20 93 2.00 07/26/17 23:20 98.6 89 20 213/88 (129) 94 07/26/17 22:23 83 07/26/17 21:20 82 07/26/17 20:50 212/88 (129) 07/26/17 20:20 85 07/26/17 19:20 98.6 87 21 213/95 (134) 93 07/26/17 19:20 93 2.00 07/26/17 19:10 83 07/26/17 18:00 91 07/26/17 17:00 86 07/26/17 16:00 88 07/26/17 15:37 98.6 98 18 187/84 (118) 93 07/26/17 15:18 95 Nasal Cannula 2.00 07/26/17 15:00 99 Result Diagram: 07/26/17 03307/26/17 033 (1) Hyperlipemia Plan: on statin (2) Hypertension Plan: norvasc increased all home meds resumed labetalol added / clonidine increased (3) Hypothyroidism Plan: synthroid (4) Diabetes mellitus Plan: on insulin sliding scale, adjust levemir / add preprandial insulin on diabetic diet / metformin (5) left thoracotomy Plan: IS, pain control pulm toileting on room air path pending lasix IV given , add ezpap and acapella (6) Lung cancer Plan: path pending Luz Mcqueen Jul 27, 2017 14:14
[2017-07-27] MEDS: LABETALOL HCL 100 MG TAB PO SCH (16:41)
[2017-07-27] MEDS: INSULIN ASPART 1,000 UNITS/10 ML VIAL SQ SCH (17:00)
--- NOTE | 2017-07-27 17:20 | RADRPT ---
EXAM DATE/TIME: 07/27/2017 14:35 [facility] COMPARISON: No previous studies available for comparison. INDICATIONS : R/O renal artery stenosis. Malignant hypertension. MEDICAL HISTORY : Lung cancer. Thyroid disease. Hypertension. Sleep apnea. GERD. Diabetes. Arthritis. Skin cancer. SURGICAL HISTORY : Tonsillectomy. Cataract removed. Cardiac stents. Lap band. Left shoulder surgery. Right elbow moiz merrill. ENCOUNTER: Initial ACUITY: 1 day PAIN SCORE: 0/10 LOCATION: Bilateral flank PEAK FLOW VELOCITIES (cm/sec): PROXIMAL: UTO MID: 108.0 DISTAL: UTO RIGHT RENAL ARTERY: PROXIMAL: UTO MID: UTO DISTAL: 112.4 RENAL ARTERY RATIO: 1.0 ARCUATE ARTERY RESISTIVE INDEX: Upper: 0.7 Mid: 0.8 Lower: 0.7 LEFT RENAL ARTERY: PROXIMAL: UTO MID: UTO DISTAL: 71.6 RENAL ARTERY RATIO: 0.7 ARCUATE ARTERY RESISTIVE INDEX: Upper: 0.7 Mid: 0.7 Lower: 0.7 FINDINGS: Bowel gas and patient body habitus limits the exam significantly. Renal artery and vein mapping as listed above. CONCLUSION: 1. Bowel gas and patient body habitus significantly limits the study. There is lack of visualization of the main renal arteries bilaterally with the exception of the most distal portions near the renal zain. 2. The visualized portions of the exam are unremarkable. 3. MRA and CTA have a much higher sensitivity and specificity for diagnosing renal artery stenoses. Stevie Childers Jr., MD on July 27, 2017 at 17:13 Board Certified Radiologist. This report was verified electronically.
[2017-07-27] MEDS: metFORMIN HCL 500 MG TAB PO SCH (20:55)
[2017-07-27] MEDS: LEVOTHYROXINE SODIUM 125 MCG TAB PO SCH (20:56)
[2017-07-27] MEDS: ATORVASTATIN 20 MG TAB PO SCH (20:56)
[2017-07-27] MEDS: PANTOPRAZOLE SOD 40 MG DELAYED RELEASE TAB PO SCH (20:56)
[2017-07-28] VITALS (10 sets, daily range): BP systolic 166–207; BP diastolic 73–90; PULSE 50–71; RESP 16–18; TEMP 97.7–98.6; O2SAT 93–94
[2017-07-28] MEDS: ACETAMINOPHEN/HYDROcodone 325 MG/7.5 MG TAB PO PRN (03:30)
[2017-07-28] MEDS: LABETALOL HCL 100 MG TAB PO SCH (03:30)
[2017-07-28 05:15] LABS: BICARBONATE 27.4 MEQ/L (21.0-32.0); CALCIUM 8.3 MG/DL (8.5-10.1); CREATININE 0.87 MG/DL (0.60-1.30); MAGNESIUM 2.2 MG/DL (1.5-2.5)
[2017-07-28] MEDS: RESP: ALBUTEROL 2.5 MG/IPRATROPIUM 0.5 MG NEB (SCH) NEB ×2 (07:14→11:07)
[2017-07-28] MEDS: ESCITALOPRAM OXALATE 10 MG TAB PO SCH (08:36)
[2017-07-28] MEDS: cloNIDine HCL 0.2 MG TAB PO SCH (08:36)
[2017-07-28] MEDS: TAMSULOSIN HCL 0.4 MG CAP PO SCH (08:36)
[2017-07-28] MEDS: ASPIRIN EC 81 MG TABEC PO SCH (08:36)
[2017-07-28] MEDS: MULTIVITAMINS/MINERALS THERAPEUTIC TAB PO SCH (08:36)
[2017-07-28] MEDS: DOCUSATE SODIUM 100 MG CAP PO SCH (08:36)
[2017-07-28] MEDS: POLYETHYLENE GLYCOL 17 GM PKG PO SCH (08:37)
[2017-07-28] MEDS: MAGNESIUM HYDROXIDE SUSP 30 ML CUP PO SCH (08:37)
[2017-07-28] MEDS: INSULIN DETEMIR 100 UNITS/ML VIAL SQ SCH (08:48)
[2017-07-28] MEDS: INSULIN ASPART 1,000 UNITS/10 ML VIAL SQ SCH (09:41)
[2017-07-28] MEDS: INSULIN ASPART SUPPLEMENTAL SCALE SQ SCH ×2 (09:42→12:43)
[2017-07-28] MEDS ORDERED: AMLO10 PO (11:53)
[2017-07-28] MEDS ORDERED: HYDR-3580 PO (11:53)
[2017-07-28] MEDS ORDERED: DOCU1CAP39 PO (11:53)
[2017-07-28] MEDS ORDERED: CLON.2 PO (11:53)
[2017-07-28] MEDS ORDERED: THERM PO (11:53)
[2017-07-28] MEDS ORDERED: LABE100T2 PO (11:53)
--- NOTE | 2017-07-28 11:59 | HHI.DS ---
Discharge Summary Admission Date Jul 24, 2017 at 05:43 Discharge Date: Jul 28, 2017 Admitting Diagnosis lung mass (1) Diabetes mellitus Diagnosis: Principal ICD Codes: E11.9 - Type 2 diabetes mellitus without complications Status: Chronic (2) Hyperlipemia Diagnosis: Principal ICD Codes: E78.5 - Hyperlipidemia, unspecified Status: Chronic (3) Hypothyroidism Diagnosis: Principal ICD Codes: E03.9 - Hypothyroidism, unspecified Status: Chronic (4) Lung cancer Diagnosis: Principal ICD Codes: C34.90 - Malignant neoplasm of unspecified part of unspecified bronchus or lung (5) Hypertension Diagnosis: Principal ICD Codes: I10 - Essential (primary) hypertension Status: Chronic (6) left thoracotomy Diagnosis: Secondary Procedures Left thoracoscopic assisted left lower lobectomy 07/24 Intercostal rib block - T4-T7 Brief History 72/ male recent incidental finding of left lover lung mass on CT scan , work up revealed new adenocarcinoma T1 NX MO , recent fatigue and cough PMH: tobacco abuse, subclavian artery occlusion, HTN, HLP, anxiety , hypothyroidism , BPH , DM CBC/BMP: 07/26/17 0330 07/28/17 0357 Significant Findings Laboratory Tests Test 07/26/17 03:30 07/28/17 03:57 White Blood Count 13.7 TH/MM3 (4.0-11.0) Red Blood Count 3.92 MIL/MM3 (4.50-5.90) Hemoglobin 12.1 GM/DL (13.0-17.0) Hematocrit 35.5 % (39.0-51.0) Neutrophils (%) (Auto) 86.5 % (16.0-70.0) Lymphocytes (%) (Auto) 5.6 % (9.0-44.0) Neutrophils # (Auto) 11.9 TH/MM3 (1.8-7.7) Lymphocytes # (Auto) 0.8 TH/MM3 (1.0-4.8) Monocytes # (Auto) 1.1 TH/MM3 (0-0.9) Blood Urea Nitrogen 30 MG/DL (7-18) 28 MG/DL (7-18) Random Glucose 137 MG/DL (74-106) Calcium Level 8.3 MG/DL (8.5-10.1) 8.3 MG/DL (8.5-10.1) Sodium Level 133 MEQ/L (136-145) 132 MEQ/L (136-145) Estimat Glomerular Filtration Rate 60 ML/MIN (>89) 87 ML/MIN (>89) Imaging Last Impressions Renal Ultrasound 07/27/17 Signed Impressions: Service Date/Time: July 14:35 - CONCLUSION: 1. Bowel gas and patient body habitus significantly limits the study. There is lack of visualization of the main renal arteries bilaterally with the exception of the most distal portions near the renal zain. 2. The visualized portions of the exam are unremarkable. 3. MRA and CTA have a much higher sensitivity and specificity for diagnosing renal artery stenoses. Stevie Childers Jr., MD Chest X-Ray 07/27/17 0000 Signed Impressions: Service Date/Time: July 08:20 - CONCLUSION: 1. Stable left apical chest tube without definite pneumothorax although there is slight increase in left chest wall subcutaneous emphysema. 2. Cardiomegaly with mild positive fluid balance. 3. Increased left lower lung zone airspace disease, likely atelectasis. Jose Nye MD PE at Discharge GENERAL: A&O x 3 SKIN: Warm and dry. incision intact and well approximated left postero lateral chest wall HEAD: Normocephalic. EYES: No scleral icterus. No injection or drainage. NECK: Supple, trachea midline. No JVD or lymphadenopathy. CARDIOVASCULAR: Regular rate and rhythm without murmurs, gallops, or rubs. RESPIRATORY: Breath sounds equal bilaterally. No accessory muscle use. diminished left lower lobe, chest tube dc withput difficulty GASTROINTESTINAL: Abdomen soft, non-tender, nondistended. MUSCULOSKELETAL: No cyanosis, or edema. BACK: Nontender without obvious deformity. No CVA tenderness. 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 had episode of hypertension and pain last night , pain meds adjusted, BP meds adjusted , spoke with pt and spouse about asking for his meds when needed now on po norco, prn fentanly CT drained 220cc/ 12 hrs , chest tube now to water seal / eval for removal in am path pending levemir adjusted for elevated BGM 2/ BGM still elevated, levemir adjusted preprandial insulin added chest tube drained 220cc/ 12 hrs, additional 100cc since this am remains on / CXR noted, volume overload with atelectasis aggressive pulm toileting OOB ambulate, BP elevated labetelol added , in addition to RAO and clonidine renal US pending / to r/u renal artery stenosis lasix IV x 1, f/u labs in am 2/ on room air, doing well pain controlled chest tube dc without difficulty BP improved , renal US noted will need f/u with Dr Moody as outpt will dc home if post chest tube removal xray stable Pt Condition on Discharge: Good Discharge Disposition: Disch w/ Home Health Serv Discharge Instructions DIET: Follow Instructions for: Heart Healthy Diet, Diabetic Diet Activities you can perform: Full Weight Bearing, Shower Only-No Bath Activities to avoid: Strenuous Activity, Driving Additional Activity Instructio: no lifting > 8 lbs or gallon of milk Follow up Referrals: Appointment for Follow Up - 3 Weeks with Masood Sheriff MD PCP Follow-up - 2 Weeks with Fuentes Tee DO Surgical - 2 Weeks with Luz Mcqueen New Medications: Amlodipine (Norvasc) 10 Mg Tab 10 MG PO DAILY for Blood Pressure Management, #30 TAB 2 Refills Clonidine (Catapres) 0.2 Mg Tab 0.2 MG PO BID for Blood Pressure Management, #60 TAB 2 Refills Docusate Sodium (Dok) 100 Mg Cap 100 MG PO BID for Constipation, #60 CAP 0 Refills Hydrocodone/Acetaminophen (Hydrocodone-Acetamin 7.5-325) 7.5 Mg-325 Mg Tablet 1 TAB PO Q4H PRN for PAIN SCALE 4 TO 7, #40 TAB 0 Refills Labetalol (Labetalol) 100 Mg Tab 100 MG PO BID for Blood Pressure Management, #60 TAB 2 Refills take at 9am and 9pm Multiple Vitamins W/ Minerals (Thera M Plus) 1 Tab 1 TAB PO DAILY for multi vitamin, #30 TAB 2 Refills Continued Medications: Aspirin (Aspirin EC) 81 Mg Tabdr 81 MG PO DAILY, TAB 0 Refills Empagliflozin (Jardiance) 10 Mg Tab 10 MG PO DAILY for Blood Sugar Management, #30 TAB 0 Refills Escitalopram (Escitalopram) 10 Mg Tab 10 MG PO DAILY, #30 TAB 0 Refills Ibuprofen-Diphenhydramine (Advil Pm) 200-38 Mg Tab 2 TAB PO HS PRN for PAIN/SLEEP, TAB 0 Refills Insulin Glargine Inj (Toujeo Solostar Pen Inj) 300 Unit/Ml Pen 45 UNITS SQ DAILY for Blood Sugar Management, PEN 0 Refills Levothyroxine (Synthroid) 125 Mcg Tab 125 MCG PO HS for Thyroid, #30 TAB 0 Refills Metformin (Metformin) 1,000 Mg Tab 1000 MG PO HS for Blood Sugar Management, #30 TAB 0 Refills With a meal Omeprazole (Omeprazole) 40 Mg Cap 40 MG PO HS, #30 CAP 0 Refills Rosuvastatin (Crestor) 10 Mg Tab 10 MG PO HS for Cholesterol Management, #30 TAB 0 Refills Silodosin (Rapaflo) 8 Mg Cap 8 MG PO HS for Manage Prostate Problems, #30 CAP 0 Refills Tamsulosin (Tamsulosin) 0.4 Mg Cap 0.4 MG PO HS for Manage Prostate Problems, #30 CAP 0 Refills Discontinued Medications: Clonidine (Clonidine) 0.2 Mg Tab 0.2 MG PO HS for Blood Pressure Management, #60 TAB 0 Refills Ramipril (Ramipril) 10 Mg Cap 20 MG PO HS, #30 CAP 0 Refills pt reports takes 2 tabs at night Luz Mcqueen Jul 28, 2017 11:59
--- NOTE | 2017-07-28 13:47 | RADRPT ---
EXAM DATE/TIME: 07/28/2017 12:15 [facility] COMPARISON: CHEST SINGLE AP, July 27, 2017, 8:20. INDICATIONS : Post chest tube removal. MEDICAL HISTORY : Hypertension. Diabetes mellitus type II. Carcinoma, lung. SURGICAL HISTORY : Left lower lobe was removed. ENCOUNTER: Subsequent ACUITY: 1 day PAIN SCORE: 0/10 LOCATION: Bilateral chest FINDINGS: A single portable frontal view of the chest shows interval removal of a left thoracostomy tube. A sma ll apical pneumothorax is now seen. The visceral pleura has pulled away 1 cm from the parietal pleura . No lateral or subpulmonic component observed. Right lung is without pneumothorax. Left basilar cons olidation noted. Multiple left-sided rib fractures. Left subcutaneous emphysema. Cardiomegaly. CONCLUSION: Small left apical pneumothorax following left chest tube removal. Stevie Childers Jr., MD on July 28, 2017 at 13:43 Board Certified Radiologist. This report was verified electronically.
== END 2017-07-28 15:40 | disposition home health service (06) | DRG 165 ==
LOC: HSDI 05:43 → HCVI 13:34 → HCPC 07-25 11:00
PROVIDERS: ADMIT Thoracic Surgery (Cardiothoracic Vascular Surgery); ATTEND Thoracic Surgery (Cardiothoracic Vascular Surgery)
PROC: 3E0T3BZ Introduction of Anesthetic Agent into Peripheral Nerves and Plexi, Percutaneous Approach (ICD-10-PCS; 2017-07-24)
PROC: 0BTJ4ZZ Resection of Left Lower Lung Lobe, Percutaneous Endoscopic Approach (ICD-10-PCS; principal; 2017-07-24 07:25)
DX: C34.32 Malignant neoplasm of lower lobe, left bronchus or lung (principal); E87.70 Fluid overload, unspecified; E11.9 Type 2 diabetes mellitus without complications; I10 Essential (primary) hypertension; E03.9 Hypothyroidism, unspecified; R11.0 Nausea; E78.5 Hyperlipidemia, unspecified; N40.0 Benign prostatic hyperplasia without lower urinary tract symptoms; F41.9 Anxiety disorder, unspecified; Z87.891 Personal history of nicotine dependence; Z95.5 Presence of coronary angioplasty implant and graft; Z79.4 Long term (current) use of insulin
CPT/HCPCS: 71045; 80048; 82948; 83735; 85025; 86850; 86900; 86901; 86920; 88305; 88307; 88309; 88331; 93975; 94150; 94640; 94664; 94667; 94668; C9248; C9290; J0131; J0360; J0690; J1100; J1815; J1940; J2270; J2405; J2765; J3480; J7120